=== PATIENT | female | born 1995 | race Two or more races ===

== ENCOUNTER 2025-06-14 21:32 | Inpatient (IN) | payer MEDICAID ==
[~2025-06-14] VITALS: Ht 165.1 cm; Wt 108.6 kg
[2025-06-14] MEDS: MAGNESIUM SULFATE 100 ML IV ONE ×2 (22:00→22:35)
[2025-06-14] MEDS: MAGNESIUM SULFATE 40MG/ML 1,000 ML IV ONE (22:00)
[2025-06-14] MEDS: MAGNESIUM SULFATE 40MG/ML 1,000 ML IV SCH (22:38)
--- NOTE | 2025-06-14 22:39 | DVHHP2 ---
OB CC & HPI Date Date of Admission: Jun 14, 2025 Patient Identification: : 4 Para: 3 EGA: 35.2 Chief Complaints: Reason for admission: section Indication for : other (Severe HTN) History of Present Complaints 29y with IUP at 35.2 wk by stated EDC Presented by Ambulance due to acute RUQ pain assoc with N/V x 3 hours Patient denies headache, visual changes or edema SBP > 200 on arrival, denies hx of CHTN. Denies CP, SOB , seizures or palpitations care at [facility] (Records not available) PSHX of C/S x 3, Cholecystectomy PMHX Gastritis Meds: PNL vitamins, Omeprazole NKDA Social hx: . Denies EtOH, Drug abuse or Tobacco use Past Medical History Cardiac: No pertinent Hx Pulmonary: No pertinent Hx Central Nervous System: No pertinent Hx GI: No pertinent Hx Hemotology/Oncology: No pertinent Hx Hepatobiliary: No pertinent Hx Psychiatric: No pertinent Hx Musculoskeletal: No pertinent Hx Rheumotologic: No pertinent Hx Infectious Disease: No peritnent Hx ENT: No pertinent Hx Renal/: No pertinent Hx Endocrine: No pertinent Hx Dermatology: No pertinent Hx Past Surgical History: Cholecystectomy, (x3) OB History OB History Care: [facility] Care Ultrasounds: Normal mid trimester US (per patient) Obstetrical Complications: None Medical Complications: Other (HTN) Current Medications Current Medications Medications (Trade) Dose Ordered Sig/Eloisa Route PRN Reason Start Time Stop Time Status Last Admin Magnesium Sulfate 1,000 ml @ 50 mls/hr Q20H IV 06/14/25 22:00 Review of Systems Constitutional: No symptom reported Ears, Nose, & Throat: No symptom reported Eyes: No symptom reported Pulmonary/Respiratory: No symptom reported Cardiovascular: No symptom reported Gastrointestinal: Nausea, Vomiting, Abdominal Pain Genitourinary: No symptom reported Musculoskeletal: No symptom reported Skin: No symptom reported Psychiatric: No symptom reported Endocrine: No symptom reported Hemotologic/Lymphatic: No symptom reported OB Admission Exam Physical Exam HEENT: Comment: (Moderate distress) Heart: Rhythm Normal Lungs: Clear Abdomen: Non tender (, Gravid) Extremities: Normal Reflexes: Normal Pelvic Exam: Deferred Heart Rate: 130's Accelerations: Accelerations Present Decelerations: No Decelerations Short Term Variability: Present Transportation Project Manager Variability: Average (6-25) Contractions on Admission: >10 Minutes Apart OB Plan Plan Admitting Diagnosis: IUP 35.2 wk, severe HTN Previous C/S x 3 Plan: Section Other Plan: Admit for medically indicated delivery Uncontrolled HTN, Magnesium sulfate and IV labetalol given per protocol PIH labs, UDS pending Obtained consent for C/S delivery, possible blood transfusion R/B/A discussed w/ patient and informed consent obtained. Visit Coding OBGYN Date of Service: Jun 14, 2025 Billing Provider: ROM COPPOLA DO MICROFABRICATION ENGINEER MANAGER Common Visit Codes: [id number] OBS CARE (HIGH) ROM COPPOLA DO Jun 14, 2025 22:39
[2025-06-14] MEDS: ceFAZolin 2 GM/D5W50ml 50 ML IV ONE (22:58)
[2025-06-14] MEDS ORDERED: ONDANSETRON HCL 4 MG/2 ML VIAL ONE ×2 (23:04→23:22)
[2025-06-14] MEDS ORDERED: MORPHINE SULF PF 5 MG/10 ML VIAL ONE (23:04)
[2025-06-14] MEDS ORDERED: fentaNYL CITRATE 100 MCG/2 ML VL ONE (23:04)
[2025-06-14] MEDS ORDERED: OXYTOCIN 10UNIT/ML 1ML VIAL ONE (23:04)
[2025-06-14] MEDS ORDERED: PHENYLEPHRINE HCL 10 MG/ML VL ONE (23:04)
[2025-06-14 23:05] LABS: Hematocrit 39.5 % (36.0-46.0); Hemoglobin 13.4 g/dL (12.2-16.2)
[2025-06-14 23:07] LABS: Mean Corpuscular Hemoglobin 26.7 pg (28.0-32.0); Mean Corpuscular Volume 79.0 fL (80.0-100.0); Nucleated Red Blood Cells % 0.1 %
[2025-06-14] MEDS ORDERED: BUPIVACAINE/DEXTROSE MPF 0.75% 2 ML AMP IT ONE (23:22)
[2025-06-14 23:24] LABS: Anion Gap 13 (5-15); BUN/Creatinine Ratio 16.5 (10.0-20.0); Bilirubin, Total 0.8 mg/dL (0.2-1.0); Blood Urea Nitrogen 14 mg/dL (9-23); Glucose 93 mg/dL (74-106); Potassium 4.0 mmol/L (3.5-5.1); Sodium 137 mmol/L (136-145); Uric Acid 7.4 mg/dL (3.1-7.8)
[2025-06-14 23:25] LABS: INR 0.89 (0.9-1.15); Partial Thromboplastin Time 27.4 SEC (24.5-34.5); Prothrombin Time 9.5 sec (9.3-11.8)
[2025-06-14 23:26] LABS: Alanine Aminotransferase 146 U/L (7-40); Albumin 3.0 g/dL (3.2-4.8); Alkaline Phosphatase 195 U/L (46-116); Calcium 8.4 mg/dL (8.7-10.4); Carbon Dioxide 17 mmol/L (20-31); Chloride 107 mmol/L (98-107); Total Protein 5.5 g/dL (5.7-8.2)
[2025-06-14 23:53] LABS: Protein, Urine > 2500.0 mg/dL (1-14)
[2025-06-15] VITALS (55 sets, daily range): BP systolic 120–166; BP diastolic 67–107; PULSE 69–91; RESP 11–27; TEMP 97.8–99.6; O2SAT 1–100
[2025-06-15] MEDS ORDERED: OXYTOCIN 10UNIT/ML 1ML VIAL ONE (00:07)
[2025-06-15 00:36] LABS: Amphetamine Screen, Urine Neg (NEGATIVE); Barbiturate Scree,Urine Neg (NEGATIVE); Benzodiazephine Screen, Urine Neg (NEGATIVE); Cannabinoid Screen, Urine Neg (NEGATIVE); Cocaine Screen, Urine Neg (NEGATIVE); Opiate Scree,Urine Neg (NEGATIVE); Phencyclidine Screen, Urine Neg (NEGATIVE)
[2025-06-15] MEDS ORDERED: NALOXONE HCL 0.4 MG/ML VIAL IV PRN (00:45)
[2025-06-15] MEDS ORDERED: HYDROmorphone HCL 2 MG/ML VL/or syr IV PRN (00:45)
--- NOTE | 2025-06-15 00:57 | DVHOP ---
DATE OF SURGERY: 06/15/2025 PREOPERATIVE DIAGNOSES: * Intrauterine , 35 weeks 2 days with severe preeclampsia. * Previous section x 3. FINAL DIAGNOSES: * Intrauterine , 35 weeks 2 days with severe preeclampsia. * Previous section x 3. PROCEDURE PERFORMED: Emergent repeat low transverse section via Pfannenstiel skin incision. SURGEON: Camacho King DO GANG WORKER: data technical lead. TYPE OF ANESTHESIA: Spinal. ANESTHESIOLOGIST: Mr. Antwan CRNA DESCRIPTION OF FINDINGS: Delivery of a liveborn male cephalic presentation. Clear amniotic fluid. scores are 8 and 9. Weight 2320 grams, 5 pounds 2 ounces. Normal bilateral fallopian tubes and ovaries. Thin lower uterine segment. Two-layer uterine closure. Adhesions of the omentum to the anterior abdominal wall and the bladder to the anterior abdominal wall. Normal-appearing placenta. TECHNICAL PROCEDURE: After informed consent was obtained, the patient was taken to the operating room where her spinal anesthesia was found to be adequate. The patient was placed in the supine position with a slight leftward tilt. She was sterilely prepped and draped in the usual sterile fashion. A Pfannenstiel skin incision was made with the scalpel through the prior scar. The incision developed sharply to the underlying layer of fascia and peritoneum. Entrance to the peritoneal cavity was performed bluntly. Using digital technique upon entering to the peritoneal cavity, adhesions could be palpated. The adhesions were bluntly and sharply lysed. Careful attention was placed over the adhesions of the bladder to the anterior abdominal wall. The omentum adhesions were with electrocautery. The abdominal incision was manually stretched. The Johnnie O retractor was placed into the incision. The vesicouterine peritoneum was dissected sharply with Metzenbaum scissors and a bladder flap created digitally. Using a 2nd scalpel, the lower uterine segment was incised in a low transverse fashion. The amniotic fluid membranes were ruptured. The fluid was clear. The baby was then delivered atraumatically from the vertex presentation. After delivery of the infant, the nose and mouth were suctioned. The cord was clamped and cut after 60 seconds and the baby handed off to the pediatric team. Cord blood was obtained. The placenta was spontaneously delivered. The uterus was exteriorized and cleared of all clots and debris using moist laparotomy sponges. The uterine incision was repaired with #0 Stratafix PDS in continuous running fashion in 2 layers. Excellent tissue approximation and hemostasis was obtained. The uterus was returned to the abdomen. The cul-de-sac and paracolic gutters were cleared of all clots and debris. The abdomen was irrigated with sterile water. Hemostasis was confirmed. All instrumentations were removed from the patient's abdomen. The lap and instrument counts were correct at this point. I then proceeded to close the rectus fascia using #1 PDS in continuous running fashion with good tissue approximation. The subcutaneous tissue was irrigated. Bleeding points were controlled with cautery. The skin was undermined with electrocautery. The subcutaneous tissue was approximated with 2-0 Monocryl and the skin closed transversely with danette. Sylke dressing was then placed over the incision. The patient tolerated the procedure well. Sponge, lap, and needle counts were correct x 4. INTRAOPERATIVE COMPLICATIONS: None. ESTIMATED BLOOD LOSS: 600 mL. POSTOPERATIVE CONDITION: Guarded. MEDICATIONS: Ancef 2 grams. SPECIMENS: Cord blood and placenta. DO SHIVA Rod TID: [id number] RECEIPT: [id number]
[2025-06-15] MEDS: LABETALOL HCL 20 MG/4 ML VL IV ONE (02:21)
[2025-06-15] MEDS: LABETALOL HCL 200 MG TAB PO SCH (02:27)
[2025-06-15] MEDS: ACETAMINOPHEN IV 1000 MG/100ML (10MG/ML) IV ONE (03:43)
[2025-06-15] MEDS: ONDANSETRON HCL 4 MG/2 ML VIAL IV PRN (04:05)
[2025-06-15] MEDS: KETOROLAC TROMETH 30 MG/ML 1ML VIAL IV PRN (06:00)
[2025-06-15 07:39] LABS: INR 1.01 (0.9-1.15); Partial Thromboplastin Time 31.2 SEC (24.5-34.5); Prothrombin Time 10.7 sec (9.3-11.8)
[2025-06-15 07:47] LABS: Anion Gap 13 (5-15); BUN/Creatinine Ratio 22.5 (10.0-20.0); Chloride 103 mmol/L (98-107)
--- NOTE | 2025-06-15 07:47 | DVHPN2 ---
Progress Note Date Seen: Jun 15, 2025 Subjective POD#0 s/p repeat C/S at 35+2d weeks due to severe Pre-Eclampsia, partial HELLP syndrome S: Pain moderate, lochia mild. RUQ pain improving; Had hematemesis this morning. Denies headache or visual changes vital signs Vital Sign Date Time Temp Pulse Resp B/P (MAP) Pulse Ox O2 Delivery O2 Flow Rate FiO2 06/15/25 02:27 80 157/98 06/15/25 01:05 24 98 06/15/25 00:38 Room Air 0 06/15/25 00:38 98 06/15/25 00:38 100.1 100.1 medications Current Medications Medications Dose Ordered Sig/Eloisa Route Start Time Stop Time Status Last Admin Dose Admin Magnesium Sulfate 1,000 ml @ 50 mls/hr Q20H IV 06/14/25 22:00 06/14/25 22:38 50 MLS/HR Ondansetron HCl 4 mg Q4HP PRN IV 06/15/25 00:45 06/15/25 04:05 4 MG Ketorolac Tromethamine 30 mg Q6HP PRN IV 06/15/25 00:45 06/20/25 00:44 06/15/25 06:00 30 MG Labetalol HCl 200 mg Q12HR PO 06/15/25 02:00 06/15/25 02:27 200 MG laboratory and microbiology Chemistry Test 06/14/25 22:17 06/15/25 06:24 Albumin 3.0 g/dL (3.2-4.8) L 2.7 g/dL (3.2-4.8) L Calcium Level 8.4 mg/dL (8.7-10.4) L 7.8 mg/dL (8.7-10.4) L Total Protein 5.5 g/dL (5.7-8.2) L 4.9 g/dL (5.7-8.2) L Coagulation Test 06/14/25 22:17 06/15/25 06:24 Prothrombin Time 9.5 sec (9.3-11.8) 10.7 sec (9.3-11.8) Prothrombin Time INR 0.89 (0.9-1.15) L 1.01 (0.9-1.15) Activated Partial Thromboplast Time 27.4 SEC (24.5-34.5) 31.2 SEC (24.5-34.5) Fibrin Degradation Products Pending D-Dimer, Quantitative 4.48 mg/L FEU (0.0-0.49) H LFT Test 06/14/25 22:17 06/15/25 06:24 Alanine Aminotransferase (ALT) 146 U/L (7-40) H 440 U/L (7-40) H Alkaline Phosphatase 195 U/L (46-116) H 180 U/L (46-116) H Aspartate Amino Transferase (AST) 222 U/L (13-40) H 1176 U/L (13-40) H Total Bilirubin 0.8 mg/dL (0.2-1.0) 2.8 mg/dL (0.2-1.0) H Chemistry Test 06/14/25 22:17 06/15/25 06:24 Albumin 3.0 g/dL (3.2-4.8) L 2.7 g/dL (3.2-4.8) L Calcium Level 8.4 mg/dL (8.7-10.4) L 7.8 mg/dL (8.7-10.4) L Total Protein 5.5 g/dL (5.7-8.2) L 4.9 g/dL (5.7-8.2) L Coagulation Test 06/14/25 22:17 06/15/25 06:24 Prothrombin Time 9.5 sec (9.3-11.8) 10.7 sec (9.3-11.8) Prothrombin Time INR 0.89 (0.9-1.15) L 1.01 (0.9-1.15) Activated Partial Thromboplast Time 27.4 SEC (24.5-34.5) 31.2 SEC (24.5-34.5) Fibrin Degradation Products Pending D-Dimer, Quantitative 4.48 mg/L FEU (0.0-0.49) H LFT Test 06/14/25 22:17 06/15/25 06:24 Alanine Aminotransferase (ALT) 146 U/L (7-40) H 440 U/L (7-40) H Alkaline Phosphatase 195 U/L (46-116) H 180 U/L (46-116) H Aspartate Amino Transferase (AST) 222 U/L (13-40) H 1176 U/L (13-40) H Total Bilirubin 0.8 mg/dL (0.2-1.0) 2.8 mg/dL (0.2-1.0) H Test 06/15/25 06:24 Range/Units Serum Glucose Pending Objective O: AFVSS Chest: heart and lung sounds normal. Abd soft, non-tender, fundus firm, BS, no rebound or guarding, Incision - dressing and incision clean, intact. Had oozing now resolved Ext Neg Homans, Non-tender, edema Lochia - minimal Labs pending for this a.m. Assessment/Plan POD#0 s/p repeat C/S Pre Eclampsia w/ Severe features (HELLP syndrome) Possible coagulopathy Plan: - Continue BP control w/ Labetalol as needed - Magnesium Sulfate drip x 24hr - Repeat labs, trend LFT's and platelets; DIC panel pending - Pain control - Seizure prophylaxis Hospitalist consult STAT, may need to be transferred to Tele/ICU care , at risk for bleeding/ seizure Plan discussed with: Patient Visit Coding OBGYN Date of Service: Jun 15, 2025 Billing Provider: ROM COPPOLA DO AUTHOR Common Visit Codes: [id number] INP/OBS CARE(HIGH) ROM COPPOLA DO Jun 15, 2025 07:47
[2025-06-15 08:02] LABS: Carbon Dioxide 17 mmol/L (20-31); Glucose 173 mg/dL (74-106); Potassium 5.4 mmol/L (3.5-5.1); Sodium 133 mmol/L (136-145)
[2025-06-15 08:03] LABS: Alanine Aminotransferase 440 U/L (7-40); Albumin 2.7 g/dL (3.2-4.8); Alkaline Phosphatase 180 U/L (46-116); Bilirubin, Total 2.8 mg/dL (0.2-1.0); Blood Urea Nitrogen 25 mg/dL (9-23); Calcium 7.8 mg/dL (8.7-10.4); Total Protein 4.9 g/dL (5.7-8.2)
[2025-06-15 09:19] LABS: Hematocrit 34.8 % (36.0-46.0); Hemoglobin 11.7 g/dL (12.2-16.2); Mean Corpuscular Hemoglobin 26.4 pg (28.0-32.0); Mean Corpuscular Volume 78.3 fL (80.0-100.0); Nucleated Red Blood Cells % 0.1 %
[2025-06-15 09:34] LABS: Protein, Urine 1654.3 mg/dL (1-14)
--- NOTE | 2025-06-15 09:57 | DVHINCON2 ---
Date Seen: Jun 15, 2025 Reason for Consultation Thrombocytopenia History of Present Illness 29 year old female s/p Had hematemesis? vs hemoptysis? x3 Oozing from wound Low urine output High BP Past Medical History Pre-eclampsia Gestational DM Past Surgical History C-Sections Allergies: Coded Allergies: NO KNOWN ALLERGIES (Unverified , 06/15/25) Home Meds Active Scripts Docusate Sodium (Colace) 100 Mg Cap, 1 CAP PO BID PRN, #30 CAP Prov:ROM COPPOLA DO 06/16/25 Ferric Maltol (Accrufer) 30 Mg Cap, 30 MG PO BID, #60 CAP 1 Refill Prov:ROM COPPOLA DO 06/16/25 Hydrocodone-Acetaminophen (Hydrocodone Bitartrate/AC 5-325 mg) 1 Tab Tab, 1 TAB PO Q6HPRN PRN, #20 TAB Prov:ROM COPPOLA DO 06/16/25 Labetalol HCl (Labetalol HCl) 200 Mg Tab, 200 MG PO Q12HR, #30 TAB Prov:ROM COPPOLA DO 06/16/25 Current Medications Current Medications Medications (Trade) Dose Ordered Sig/Eloisa Route PRN Reason Start Time Stop Time Status Last Admin Magnesium Sulfate 1,000 ml @ 50 mls/hr Q20H IV 06/14/25 22:00 06/14/25 22:38 Ondansetron HCl (Zofran) 4 mg Q4HP PRN IV NAUSEA / VOMITING 06/15/25 00:45 06/15/25 04:05 Naloxone HCl (Narcan) 0.2 mg Q5M PRN IV For respirations < than 10/min 06/15/25 00:45 06/15/25 02:10 DC Hydromorphone HCl (Dilaudid Injection) 0.5 mg Q15M PRN IV SEVERE PAIN (7-10 PAIN SCALE) 06/15/25 00:45 06/15/25 02:10 DC Ketorolac Tromethamine (Toradol Injection) 30 mg Q6HP PRN IV MODERATE PAIN (4-6 PAIN SCALE) 06/15/25 00:45 06/15/25 09:17 DC 06/15/25 06:00 Labetalol HCl (Normodyne Tablet) 200 mg Q12HR PO 06/15/25 02:00 06/15/25 08:25 Pantoprazole Sodium (Protonix) 40 mg BID IV 06/15/25 10:00 Vital Signs Vital Signs Date Time Temp Pulse Resp B/P (MAP) Pulse Ox O2 Delivery O2 Flow Rate FiO2 06/15/25 08:42 Room Air 06/15/25 08:25 83 147/78 06/15/25 08:13 20 95 06/15/25 06:30 98.5 98.5 06/15/25 00:38 0 06/15/25 00:38 98 Physical Exam Alert, oriented, stress Chest clear to auscultation bilaterally Abdomen soft nontender new line extremities no edema new line heart regular rate and rhythm Labs/Diagnostic Data Labs Test 06/15/25 08:56 06/15/25 07:00 06/15/25 06:24 06/14/25 23:06 Range/Units White Blood Count 15.6 H 4.4-10.8 10^3/uL Red Blood Count 4.45 4.0-5.20 10^6/uL Hemoglobin 11.7 L 12.2-16.2 g/dL Hematocrit 34.8 #L 36.0-46.0 % Mean Corpuscular Volume 78.3 L 80.0-100.0 fL Mean Corpuscular Hemoglobin 26.4 L 28.0-32.0 pg Mean Corpuscular Hemoglobin Concent 33.7 32.0-36.0 g/dL Red Cell Distribution Width 15.1 H 11.8-14.3 % Platelet Count 52 L 140-450 10^3/uL Mean Platelet Volume 7.7 6.9-10.8 fL Neutrophils (%) (Auto) 87.8 H 37.0-80.0 % Lymphocytes (%) (Auto) 7.4 L 10.0-50.0 % Monocytes (%) (Auto) 4.6 0.0-12.0 % Eosinophils (%) (Auto) 0.0 0.0-7.0 % Basophils (%) (Auto) 0.2 0.0-2.0 % Neutrophils # (Auto) 13.7 H 1.6-8.6 10 ^3/uL Lymphocytes # (Auto) 1.1 0.4-5.4 10 ^3/uL Monocytes # (Auto) 0.7 0-1.3 10 ^3/uL Eosinophils # (Auto) 0 0-0.8 10 ^3/uL Basophils # (Auto) 0 0-0.2 10 ^3/uL Nucleated Red Blood Cells 0.1 % Lactate Dehydrogenase 2490 H 120-246 U/L Urine Creatinine 95.30 30.0-125.0 mg/dL Urine Protein/Creatinine Ratio 17.36 Urine Total Protein 1654.3 H 1-14 mg/dL Prothrombin Time 10.7 9.3-11.8 sec Prothrombin Time INR 1.01 0.9-1.15 Activated Partial Thromboplast Time 31.2 24.5-34.5 SEC Sodium Level 133 L 136-145 mmol/L Potassium Level 5.4 H 3.5-5.1 mmol/L Chloride Level 103 98-107 mmol/L Carbon Dioxide Level 17 L 20-31 mmol/L Anion Gap 13 5-15 Blood Urea Nitrogen 25 #H 9-23 mg/dL Creatinine 1.11 #H 0.550-1.02 mg/dL Glomerular Filtration Rate Calc 69 >90 mL/min BUN/Creatinine Ratio 22.5 H 10.0-20.0 Serum Glucose 173 H 74-106 mg/dL Uric Acid 8.3 H 3.1-7.8 mg/dL Calcium Level 7.8 L 8.7-10.4 mg/dL Magnesium Lvl (Mg Sulfate Therapy) 6.80 4.0-7.1 mg/dL Total Bilirubin 2.8 H 0.2-1.0 mg/dL Aspartate Amino Transferase (AST) 1176 H 13-40 U/L Alanine Aminotransferase (ALT) 440 H 7-40 U/L Alkaline Phosphatase 180 H 46-116 U/L Total Protein 4.9 L 5.7-8.2 g/dL Albumin 2.7 L 3.2-4.8 g/dL Urine Opiates Screen Neg NEGATIVE Urine Fentanyl Screen Neg NEGATIVE Urine Barbiturates Screen Neg NEGATIVE Urine Phencyclidine Screen Neg NEGATIVE Urine Amphetamines Screen Neg NEGATIVE Urine Benzodiazepines Screen Neg NEGATIVE Urine Cocaine Screen Neg NEGATIVE Urine Cannabinoids Screen Neg NEGATIVE Test 06/14/25 22:17 06/14/25 07:00 Range/Units D-Dimer, Quantitative 4.48 H 0.0-0.49 mg/L FEU Assessment Preeclampsia Thrombocytopenia Most likely HELLP Transaminitis due to the above Hyper kalemia Hyponatremia Acute kidney injury Hypertension PLAN: IV fluids Transfuse 1 unit platelets Labetalol IV p.r.n. for blood pressure control IV Protonix CT scan of the abdomen pelvis no contrast Upgrade to BEN Discussed with patient and at the bedside Not stable for transfer Plan discussed with: Patient, Spouse Date of Service: Jun 15, 2025 Billing Provider: DIDI SUN MD Common Visit Codes: [id number] INP/OBS CARE(HIGH) DIDI SUN MD Jun 15, 2025 09:57
[2025-06-15] MEDS ORDERED: LABETALOL HCL 20 MG/4 ML VL IV PRN (10:00)
[2025-06-15] MEDS: SODIUM CHLORIDE 0.9% 500 ML IV ONE (10:48)
[2025-06-15] MEDS: SODIUM CHLORIDE 0.9% 1,000 ML IV ONE (10:49)
--- NOTE | 2025-06-15 10:58 | DVH ---
CLINICAL HISTORY: post op bleeding TECHNIQUE: CT of the abdomen and pelvis was performed without IV contrast. This exam was performed ac cording to our departmental dose optimization program. Up-to-date CT equipment and radiation dose red uction techniques are utilized as appropriate. CTDI 24 DLP 1232 COMPARISON: None FINDINGS: Abdomen/Pelvis: The spleen, pancreas, adrenal glands, kidneys, and liver are grossly unremarkable. The gallbladder is absent. The bladder decompressed via [place]. The uterus appears enlarged and edematous, compatible with recent surgery, suspect . There i s a small amount of air and blood products within the endometrial cavity. There are a few foci of peggy e intraperitoneal air anterior to the uterine fundus. There is trace hemoperitoneum. There is a small amount of blood products within the lower anterior left pelvic abdominal wall with m oderate amount of intramuscular and subcutaneous air. There are anterior skin danette. The abdominal aorta is normal in course and caliber. There are no significant atherosclerotic calcifi cations. There is no enlarged abdominal pelvic lymph node. There is no bowel wall thickening or dilatation. The appendix is normal. Other: The imaged lower thorax demonstrates miniscule bilateral pleural effusions with minimal adjacent atel ectasis. No acute osseous abnormality is evident. Impression: Edematous enlarged uterus with small amount of blood products within the endometrial canal and trace hemoperitoneum. Trace peritoneal free air, small amount of intramuscular hematoma, and moderate amoun t of air within the subcutaneous tissues and anterior abdominal wall musculature. Overall degree of f indings can be expected range for postoperative change. Recommend correlation with serial HandH level and follow-up exams as clinically indicated. If there is concern for active bleeding, multiphase con trast enhanced CT is suggested.
[2025-06-15 12:01] LABS: Hemoglobin 10.6 g/dL (12.2-16.2)
[2025-06-15 12:03] LABS: Hematocrit 31.5 % (36.0-46.0); Mean Corpuscular Hemoglobin 26.4 pg (28.0-32.0); Mean Corpuscular Volume 78.7 fL (80.0-100.0); Nucleated Red Blood Cells % 0.1 %
[2025-06-15 12:15] LABS: Alanine Aminotransferase 338 U/L (7-40); Albumin 2.4 g/dL (3.2-4.8); Alkaline Phosphatase 147 U/L (46-116); Anion Gap 12 (5-15); BUN/Creatinine Ratio 24.1 (10.0-20.0); Bilirubin, Total 2.2 mg/dL (0.2-1.0); Blood Urea Nitrogen 28 mg/dL (9-23); Calcium 7.1 mg/dL (8.7-10.4); Carbon Dioxide 17 mmol/L (20-31); Chloride 105 mmol/L (98-107); Glucose 121 mg/dL (74-106); Potassium 5.1 mmol/L (3.5-5.1); Sodium 134 mmol/L (136-145); Total Protein 4.4 g/dL (5.7-8.2)
[2025-06-15 12:24] LABS: Magnesium,Therapeutic 6.67 mg/dL (4.0-7.1)
[2025-06-15] MEDS: PANTOPRAZOLE 40 MG/10 ML VIAL INJ IV SCH (12:36)
[2025-06-15] MEDS: IOHEXOL 350 MG/ML 100ML IJ ONE (17:11)
[2025-06-15 18:18] LABS: Hematocrit 28.6 % (36.0-46.0); Hemoglobin 9.6 g/dL (12.2-16.2); Mean Corpuscular Hemoglobin 26.1 pg (28.0-32.0); Mean Corpuscular Volume 77.5 fL (80.0-100.0); Nucleated Red Blood Cells % 0.1 %
[2025-06-15] MEDS: MAGNESIUM SULFATE 40MG/ML 1,000 ML IV SCH (18:30)
[2025-06-15 18:31] LABS: Alanine Aminotransferase 270 U/L (7-40); Albumin 2.4 g/dL (3.2-4.8); Alkaline Phosphatase 131 U/L (46-116); Anion Gap 11 (5-15); BUN/Creatinine Ratio 28.0 (10.0-20.0); Blood Urea Nitrogen 30 mg/dL (9-23); Calcium 6.7 mg/dL (8.7-10.4); Carbon Dioxide 18 mmol/L (20-31); Chloride 105 mmol/L (98-107); Glucose 92 mg/dL (74-106); Potassium 5.0 mmol/L (3.5-5.1); Sodium 134 mmol/L (136-145); Total Protein 4.3 g/dL (5.7-8.2)
[2025-06-15 18:33] LABS: Bilirubin, Total 1.7 mg/dL (0.2-1.0)
[2025-06-15 18:40] LABS: Magnesium,Therapeutic 6.04 mg/dL (4.0-7.1)
--- NOTE | 2025-06-15 18:46 | DVH ---
INDICATION: hemoptysis TECHNIQUE: Multidetector CTA of the chest was performed of the chest with 100 cc of intravenous contr ast. PULMONARY ANGIOGRAPHY PROTOCOL was utilized using a bolus-tracking technique centered on the dylon n pulmonary artery. Axial, coronal and sagittal multiplanar and MIP reformats were performed. Radiation Dose Information: CT Dose: CTDI volume is 43 mGy. Dose-length product is 1066.19 mGy*cm Omnipaque 350: 60 mL The dose indicators for CT are the volume Computed Tomography (CT) Dose Index (CTDIvol) and the Dose Length Product (DLP), and are measured in units of mGy and mGy-cm, respectively. These indicators are not patient dose, but values generated from the CT scanner acquisition factors. The report includes radiation exposure data for exposures received during this examination. Findings: Pulmonary artery: Normal caliber of the pulmonary artery. No large central or large segmental pulmo nary embolism. Lower neck: Normal thyroid. Lungs: No focal consolidation, pulmonary mass, or suspicious pulmonary nodule. Minimal dependent atel ectasis posteriorly in both lower lung dela cruz. Heart/Vascular Structures: Normal heart size. Normal caliber and enhancement of the aorta. Lymph Nodes: No adenopathy Pleura: No pleural effusion or significant pneumothorax. Musculoskeletal: No acute osseous abnormality. Upper abdomen: Gallbladder is surgically removed. IMPRESSION: 1. No pulmonary embolism or findings of pulmonary artery hypertension. 2. No acute intrathoracic abnormality.
[2025-06-15] MEDS: MORPHINE SULFATE INJ 2 MG/ml SYRG IV PRN (18:55)
[2025-06-15 19:21] LABS: INR 0.96 (0.9-1.15); Partial Thromboplastin Time 30.8 SEC (24.5-34.5); Prothrombin Time 10.2 sec (9.3-11.8)
[2025-06-15] MEDS: RHO (D) IMMUNE GLOBULIN 300 MCG INJ IM ONE (20:45)
[2025-06-15] MEDS: SODIUM CHLORIDE 0.9% 1,000 ML IV SCH (21:07)
[2025-06-16] VITALS (60 sets, daily range): BP systolic 112–147; BP diastolic 63–86; PULSE 68–124; RESP 12–29; TEMP 97.8–98.8; O2SAT 94–100
[2025-06-16 05:04] LABS: Anion Gap 9 (5-15); BUN/Creatinine Ratio 22.1 (10.0-20.0); Blood Urea Nitrogen 21 mg/dL (9-23); Chloride 107 mmol/L (98-107); Potassium 4.4 mmol/L (3.5-5.1)
[2025-06-16 05:21] LABS: Alanine Aminotransferase 206 U/L (7-40); Albumin 2.7 g/dL (3.2-4.8); Alkaline Phosphatase 123 U/L (46-116); Bilirubin, Total 1.2 mg/dL (0.2-1.0); Calcium 6.9 mg/dL (8.7-10.4); Carbon Dioxide 20 mmol/L (20-31); Glucose 113 mg/dL (74-106); Magnesium,Therapeutic 5.34 mg/dL (4.0-7.1); Sodium 136 mmol/L (136-145); Total Protein 4.8 g/dL (5.7-8.2)
[2025-06-16 05:35] LABS: Hematocrit 26.7 % (36.0-46.0); Hemoglobin 9.1 g/dL (12.2-16.2); Mean Corpuscular Hemoglobin 26.5 pg (28.0-32.0); Mean Corpuscular Volume 77.9 fL (80.0-100.0); Nucleated Red Blood Cells % 0.1 %
[2025-06-16] MEDS ORDERED: FERR30CA PO (12:03)
[2025-06-16] MEDS ORDERED: DOCU-94 PO (12:03)
[2025-06-16] MEDS ORDERED: LABE200T10 PO (12:03)
[2025-06-16] MEDS ORDERED: HYDR-4902 PO (12:03)
--- NOTE | 2025-06-16 12:11 | DVHPN2 ---
Progress Note Date Seen: Jun 16, 2025 Subjective POD#1 s/p Repeat C/S at 35 wk due to HELLP syndrome ICU admission for very low platelets and HTN Feels better. No more RUQ pain. NO N/V . Lochia mild Denies BRADY, Visual changes vital signs Vital Sign Date Time Temp Pulse Resp B/P (MAP) Pulse Ox O2 Delivery O2 Flow Rate FiO2 06/16/25 11:20 98.7 75 14 127/78 98.7 06/16/25 08:00 99 Room Air* 0 21 Total Intake and Output 06/15/25 06/15/25 06/16/25 15:00 23:00 07:00 Intake Total 250 ml 1175 ml 1347 ml Output Total 545 ml 1600 ml 2050 ml Balance -295 ml -425 ml -703 ml medications Current Medications Medications Dose Ordered Sig/Eloisa Route Start Time Stop Time Status Last Admin Dose Admin Ondansetron HCl 4 mg Q4HP PRN IV 06/15/25 00:45 06/15/25 04:05 4 MG Labetalol HCl 200 mg Q12HR PO 06/15/25 02:00 06/16/25 09:54 200 MG Pantoprazole Sodium 40 mg BID IV 06/15/25 10:00 06/15/25 22:39 40 MG Labetalol HCl 10 mg Q2HPRN PRN IV 06/15/25 10:00 Morphine Sulfate 2 mg Q4HPRN PRN IV 06/15/25 18:15 06/15/25 18:55 2 MG Dexamethasone 6 mg DAILY PO 06/16/25 10:00 Sodium Chloride 1,000 ml @ 100 mls/hr Q10H IV 06/15/25 16:00 06/16/25 06:02 100 MLS/HR laboratory and microbiology Laboratory Tests 06/16/25 04:22 Test 06/16/25 04:22 Range/Units Serum Glucose 113 H 74-106 mg/dL Objective O: AFVSS Chest: heart and lung sounds normal. Abd soft, non-tender, fundus firm, BS, no rebound or guarding, Incision - dressing and incision clean, dry, intact Ext Neg Homans, Non-tender, edema Lochia - minimal Labs Reviewed Assessment/Plan POD#1 s/p RCS HELLP syndrome, improving s/p platelet transfusion Plan: Step down from ICU Dexamethasone 10mg IV q 12hr up to 2-4 doses or until Platelets improve Plan discussed with: Patient, Spouse Visit Coding OBGYN Date of Service: Jun 16, 2025 Billing Provider: ROM COPPOLA DO WATER TANKER DRIVER Common Visit Codes: [id number] INP/OBS CARE(HIGH) ROM COPPOLA DO Jun 16, 2025 12:11
[2025-06-16 12:12] LABS: Protein, Urine 112.9 mg/dL (1-14)
[2025-06-16 12:23] LABS: Hemoglobin 9.1 g/dL (12.2-16.2); Mean Corpuscular Hemoglobin 26.3 pg (28.0-32.0); Nucleated Red Blood Cells % 0.1 %
[2025-06-16 12:24] LABS: Hematocrit 27.2 % (36.0-46.0); Mean Corpuscular Volume 78.5 fL (80.0-100.0)
--- NOTE | 2025-06-16 12:24 | DVHPN2 ---
Subjective Better No hemoptysis Vital signs are stable Changes from previous H/P or p: Changes Objective Vitals Vital Signs Date Time Temp Pulse Resp B/P (MAP) Pulse Ox O2 Delivery O2 Flow Rate FiO2 06/16/25 11:20 98.7 75 14 127/78 98.7 06/16/25 08:00 99 Room Air* 0 21 Intake/Output Intake and Output 06/16/25 06:59 Intake Total 2772 ml Output Total 4295 ml Balance -1523 ml Intake Oral 0 ml IV Total 1550 ml Tube Feeding 0 ml Blood Product 722 ml Other 500 ml Output Urine Total 4295 ml General Appearance: Alert, Oriented X3, Cooperative, No acute distress Lungs: Clear to auscultation, Normal air movement Cardiovascular: Regular rate, Normal S1, Normal S2 Abdomen: Normal bowel sounds, Soft, No tenderness Extremities: No edema Medications Current Medications Medications Dose Ordered Sig/Eloisa Route Start Time Stop Time Status Last Admin Dose Admin Ondansetron HCl 4 mg Q4HP PRN IV 06/15/25 00:45 06/15/25 04:05 4 MG Labetalol HCl 200 mg Q12HR PO 06/15/25 02:00 06/16/25 09:54 200 MG Pantoprazole Sodium 40 mg BID IV 06/15/25 10:00 06/15/25 22:39 40 MG Labetalol HCl 10 mg Q2HPRN PRN IV 06/15/25 10:00 Morphine Sulfate 2 mg Q4HPRN PRN IV 06/15/25 18:15 06/15/25 18:55 2 MG Sodium Chloride 1,000 ml @ 100 mls/hr Q10H IV 06/15/25 16:00 06/16/25 06:02 100 MLS/HR Dexamethasone Sodium Phosphate 10 mg/Dextrose 51 ml @ 204 mls/hr BID IV 06/16/25 12:15 06/17/25 22:14 UNV Laboratory Results Chemistry Test 06/15/25 18:04 06/16/25 04:22 06/16/25 12:00 Albumin 2.4 g/dL (3.2-4.8) L 2.7 g/dL (3.2-4.8) L Pending Calcium Level 6.7 mg/dL (8.7-10.4) L 6.9 mg/dL (8.7-10.4) L Pending Total Protein 4.3 g/dL (5.7-8.2) L 4.8 g/dL (5.7-8.2) L Pending Coagulation Test 06/15/25 18:58 Prothrombin Time 10.2 sec (9.3-11.8) Prothrombin Time INR 0.96 (0.9-1.15) Activated Partial Thromboplast Time 30.8 SEC (24.5-34.5) LFT Test 06/15/25 18:04 06/16/25 04:22 06/16/25 12:00 Alanine Aminotransferase (ALT) 270 U/L (7-40) H 206 U/L (7-40) H Pending Alkaline Phosphatase 131 U/L (46-116) H 123 U/L (46-116) H Pending Aspartate Amino Transferase (AST) 459 U/L (13-40) H 200 U/L (13-40) H Pending Total Bilirubin 1.7 mg/dL (0.2-1.0) H 1.2 mg/dL (0.2-1.0) H Pending Urinalysis Test 06/14/25 07:00 06/16/25 11:25 Creatinine Clearance mL/min (75-115) Urine Creatinine 25.02 mg/dL (30.0-125.0) L Urine Protein/Creatinine Ratio 4.51 Urine Total Protein 112.9 mg/dL (1-14) H Assessment/Plan Assessment/Plan Preeclampsia Thrombocytopenia Most likely HELLP Transaminitis due to the above Hyperkalemia: Resolved Hyponatremia: Resolved Acute kidney injury: Resolved Hypertension Plan Transfuse 1 more unit platelets Steroids Replace magnesium as needed Labetalol IV p.r.n. for hypertension Downgrade to med surge Not stable for transfer Plan discussed with: Patient My Orders Orders - DIDI SUN MD Procedure Category Date Status Time Ct Angio Chest CT 06/15/25 Resulted Contrast 16:32 Morphine Sulfate PHA 06/15/25 In Process Injection 18:15 Mrsa Screen PAUL 06/15/25 In Process 18:27 Transfer Orders XFER 06/15/25 Transmitted 16:00 Urine Bacterial PAUL 06/16/25 In Process Culture 11:42 Sodium Chloride 0.9% PHA 06/15/25 In Process 16:00 Date of Service: Jun 16, 2025 Billing Provider: DIDI SUN MD Common Visit Codes: [id number] INP/OBS CARE(HIGH) DIDI SUN MD Jun 16, 2025 12:24
[2025-06-16 12:38] LABS: Anion Gap 10 (5-15); BUN/Creatinine Ratio 27.7 (10.0-20.0); Blood Urea Nitrogen 23 mg/dL (9-23); Carbon Dioxide 21 mmol/L (20-31); Glucose 87 mg/dL (74-106); Potassium 4.3 mmol/L (3.5-5.1); Sodium 138 mmol/L (136-145)
[2025-06-16 12:39] LABS: Alanine Aminotransferase 184 U/L (7-40); Albumin 2.6 g/dL (3.2-4.8); Alkaline Phosphatase 121 U/L (46-116); Bilirubin, Total 1.1 mg/dL (0.2-1.0); Calcium 6.5 mg/dL (8.7-10.4); Chloride 107 mmol/L (98-107); Total Protein 4.7 g/dL (5.7-8.2)
[2025-06-16] MEDS: HYDROcodone-ACET 10/325MG TAB PO PRN (15:55)
[2025-06-16 16:01] LABS: Hemoglobin 8.9 g/dL (12.2-16.2); Nucleated Red Blood Cells % 0.1 %
[2025-06-16 16:03] LABS: Hematocrit 26.3 % (36.0-46.0); Mean Corpuscular Hemoglobin 26.6 pg (28.0-32.0); Mean Corpuscular Volume 78.2 fL (80.0-100.0)
[2025-06-16 16:15] LABS: Alkaline Phosphatase 115 U/L (46-116); Anion Gap 9 (5-15); BUN/Creatinine Ratio 28.8 (10.0-20.0); Bilirubin, Total 1.0 mg/dL (0.2-1.0); Blood Urea Nitrogen 23 mg/dL (9-23); Carbon Dioxide 22 mmol/L (20-31); Glucose 96 mg/dL (74-106); Potassium 4.0 mmol/L (3.5-5.1); Sodium 139 mmol/L (136-145)
[2025-06-16 16:29] LABS: Alanine Aminotransferase 163 U/L (7-40); Albumin 2.6 g/dL (3.2-4.8); Calcium 6.6 mg/dL (8.7-10.4); Chloride 108 mmol/L (98-107); Total Protein 4.5 g/dL (5.7-8.2)
[2025-06-16] MEDS: SIMETHICONE 80 MG CHEWABLE TABLET PO SCH (19:07)
[2025-06-16] MEDS: IBUPROFEN 800 MG TAB PO PRN (19:08)
[2025-06-16] MEDS: DOCUSATE SOD 100 MG CAP PO SCH (22:13)
[2025-06-17] VITALS (13 sets, daily range): BP systolic 137–178; BP diastolic 73–88; PULSE 70–89; RESP 18–20; TEMP 98.2–98.5; O2SAT 96–98
[2025-06-17 03:58] LABS: Hemoglobin 8.4 g/dL (12.2-16.2); Nucleated Red Blood Cells % 0.1 %
[2025-06-17 04:00] LABS: Hematocrit 24.7 % (36.0-46.0); Mean Corpuscular Hemoglobin 26.8 pg (28.0-32.0); Mean Corpuscular Volume 78.5 fL (80.0-100.0)
[2025-06-17 04:11] LABS: INR 0.91 (0.9-1.15); Partial Thromboplastin Time 25.6 SEC (24.5-34.5); Prothrombin Time 9.7 sec (9.3-11.8)
[2025-06-17 04:14] LABS: Alkaline Phosphatase 107 U/L (46-116); Anion Gap 10 (5-15); BUN/Creatinine Ratio 19.8 (10.0-20.0); Blood Urea Nitrogen 19 mg/dL (9-23); Carbon Dioxide 21 mmol/L (20-31); Chloride 106 mmol/L (98-107); Potassium 4.1 mmol/L (3.5-5.1); Sodium 137 mmol/L (136-145); Uric Acid 8.9 mg/dL (3.1-7.8)
[2025-06-17 04:15] LABS: Bilirubin, Total 0.8 mg/dL (0.2-1.0)
[2025-06-17 04:27] LABS: Alanine Aminotransferase 121 U/L (7-40); Albumin 2.6 g/dL (3.2-4.8); Calcium 7.1 mg/dL (8.7-10.4); Glucose 159 mg/dL (74-106); Total Protein 4.8 g/dL (5.7-8.2)
[2025-06-17] MEDS: PANTOPRAZOLE 40 MG TAB PO SCH (05:31)
--- NOTE | 2025-06-17 06:42 | DVHPN2 ---
Progress Note Date Seen: Jun 17, 2025 Subjective POD#2 HELLP syndrome, repeat C/Section S: Feeling better. Moderate pain. Light lochia Denies BRADY, Visual changes, RUQ pain vital signs Vital Sign Date Time Temp Pulse Resp B/P (MAP) Pulse Ox O2 Delivery O2 Flow Rate FiO2 06/17/25 03:00 98.2 82 18 143/80 (101) 98 98.2 06/16/25 19:00 Room Air 06/16/25 08:00 0 21 Total Intake and Output 06/16/25 06/16/25 06/17/25 14:59 22:59 06:59 Intake Total 890 ml 750 ml Output Total 4400 ml 900 ml Balance 890 ml -3650 ml -900 ml medications Current Medications Medications Dose Ordered Sig/Eloisa Route Start Time Stop Time Status Last Admin Dose Admin Labetalol HCl 200 mg Q12HR PO 06/15/25 02:00 06/16/25 22:12 200 MG Labetalol HCl 10 mg Q2HPRN PRN IV 06/15/25 10:00 Dexamethasone Sodium Phosphate 10 mg/Dextrose 51 ml @ 204 mls/hr BID IV 06/16/25 12:15 06/17/25 22:14 06/17/25 03:36 204 MLS/HR Acetaminophen/ Hydrocodone Bitart 1 tab Q6HP PRN PO 06/16/25 15:15 06/17/25 03:37 1 TAB Docusate Sodium 100 mg Q12HR PO 06/16/25 22:00 06/16/25 22:13 100 MG Dimethicone 80 mg QID PO 06/16/25 18:00 06/17/25 05:31 80 MG Ibuprofen 800 mg Q8HP PRN PO 06/16/25 17:45 06/17/25 02:18 800 MG Pantoprazole Sodium 40 mg DAILY@0600 PO 06/17/25 06:00 06/17/25 05:31 40 MG laboratory and microbiology Laboratory Tests 06/17/25 03:28 Test 06/17/25 03:28 Range/Units Serum Glucose 159 H 74-106 mg/dL Objective O: AFVSS Chest: heart and lung sounds normal. Abd soft, non-tender, fundus firm, BS, no rebound or guarding, Incision - dressing and incision clean, dry, intact Ext Neg Homans, Non-tender, edema Lochia - minimal Labs Reviewed Assessment/Plan POD#2 HELLP SYNDROME -- Platelets still 41k, continue IV Dexamethasone 10mg IV Q12 hr -- Consider repeat transfusion of plt, will defer to hospitalist storage management consultant's recommendations Precipitous drop in H/H due to acute blood loss (surgical), hemoconcentration, and acute hemolysis -- repeat labs at noon today, transfuse if Hb < 7 Advance care, supportive care Plan discussed with: Patient, Other (Care endorsed to Dr Delmi TOMAS aoc operations intelligence chief ) Visit Coding OBGYN Date of Service: Jun 17, 2025 Billing Provider: ROM COPPOLA DO PATIENT SAFETY SITTER Common Visit Codes: [id number] INP/OBS CARE (HIGH) ROM COPPOLA DO Jun 17, 2025 06:42
--- NOTE | 2025-06-17 14:16 | DVHPN2 ---
Subjective Doing well No hemoptysis No bleeding Platelets 41 Changes from previous H/P or p: Changes Objective Vitals Vital Signs Date Time Temp Pulse Resp B/P (MAP) Pulse Ox O2 Delivery O2 Flow Rate FiO2 06/17/25 12:33 98.3 74 18 142/82 (102) 97 98.3 06/17/25 07:20 Room Air 06/16/25 08:00 0 21 Intake/Output Intake and Output 06/17/25 07:00 Intake Total 1515 ml Output Total 5800 ml Balance -4285 ml Intake Oral 750 ml IV Total 500 ml Other 265 ml Output Urine Total 5800 ml # Voids 3 General Appearance: Alert, Oriented X3, Cooperative, No acute distress Lungs: Clear to auscultation, Normal air movement Cardiovascular: Regular rate, Normal S1, Normal S2 Abdomen: Normal bowel sounds, Soft, No tenderness Extremities: No edema Medications Current Medications Medications Dose Ordered Sig/Eloisa Route Start Time Stop Time Status Last Admin Dose Admin Labetalol HCl 200 mg Q12HR PO 06/15/25 02:00 06/17/25 09:31 200 MG Labetalol HCl 10 mg Q2HPRN PRN IV 06/15/25 10:00 Dexamethasone Sodium Phosphate 10 mg/Dextrose 51 ml @ 204 mls/hr BID IV 06/16/25 12:15 06/17/25 22:14 06/17/25 03:36 204 MLS/HR Acetaminophen/ Hydrocodone Bitart 1 tab Q6HP PRN PO 06/16/25 15:15 06/17/25 09:31 1 TAB Docusate Sodium 100 mg Q12HR PO 06/16/25 22:00 06/17/25 09:30 100 MG Dimethicone 80 mg QID PO 06/16/25 18:00 06/17/25 12:32 80 MG Ibuprofen 800 mg Q8HP PRN PO 06/16/25 17:45 06/17/25 12:31 800 MG Pantoprazole Sodium 40 mg DAILY@0600 PO 06/17/25 06:00 06/17/25 05:31 40 MG Laboratory Results Laboratory Tests 06/17/25 03:28 Chemistry Test 06/16/25 15:52 06/17/25 03:28 Albumin 2.6 g/dL (3.2-4.8) L 2.6 g/dL (3.2-4.8) L Calcium Level 6.6 mg/dL (8.7-10.4) L 7.1 mg/dL (8.7-10.4) L Total Protein 4.5 g/dL (5.7-8.2) L 4.8 g/dL (5.7-8.2) L Coagulation Test 06/17/25 03:28 Prothrombin Time 9.7 sec (9.3-11.8) Prothrombin Time INR 0.91 (0.9-1.15) Activated Partial Thromboplast Time 25.6 SEC (24.5-34.5) LFT Test 06/16/25 15:52 06/17/25 03:28 Alanine Aminotransferase (ALT) 163 U/L (7-40) H 121 U/L (7-40) H Alkaline Phosphatase 115 U/L (46-116) 107 U/L (46-116) Aspartate Amino Transferase (AST) 106 U/L (13-40) H 55 U/L (13-40) H Total Bilirubin 1.0 mg/dL (0.2-1.0) 0.8 mg/dL (0.2-1.0) Urinalysis Test 06/14/25 07:00 06/16/25 11:25 Creatinine Clearance mL/min (75-115) Urine Creatinine 25.02 mg/dL (30.0-125.0) L Urine Protein/Creatinine Ratio 4.51 Urine Total Protein 112.9 mg/dL (1-14) H Microbiology Microbiology Date/Time Source Procedure Growth Status 06/16/25 11:25 Urine - [place] Urine Culture - Preliminary Resulted 06/15/25 17:57 Nose MRSA Screen - Final Complete Assessment/Plan Assessment/Plan Preeclampsia Thrombocytopenia Most likely HELLP Transaminitis due to the above Hyperkalemia: Resolved Hyponatremia: Resolved Acute kidney injury: Resolved Hypertension Plan 06/16/2025: Transfuse 1 more unit platelets Steroids Replace magnesium as needed Labetalol IV p.r.n. for hypertension Downgrade to med surge Not stable for transfer 06/17/2025: Thrombocytopenia is stable, platelets 41, no need for transfusions Monitor Transaminitis is better Acute kidney injury is better Discharge planning for tomorrow if her platelet count is starting to go up Plan discussed with: Patient, Spouse My Orders Orders - DIDI SUN MD Procedure Category Date Status Time Transfer Orders XFER 06/16/25 Transmitted 14:37 Date of Service: Jun 17, 2025 Billing Provider: DIDI SUN MD Common Visit Codes: [id number] INP/OBS CARE(HIGH) DIDI SUN MD Jun 17, 2025 14:16
[2025-06-17] MEDS ORDERED: HYDROcodone-ACET 5/325MG TAB PO PRN (14:30)
[2025-06-17 15:18] LABS: Hemoglobin 8.8 g/dL (12.2-16.2); Nucleated Red Blood Cells % 0.1 %
[2025-06-17 15:20] LABS: Hematocrit 26.3 % (36.0-46.0); Mean Corpuscular Hemoglobin 26.8 pg (28.0-32.0); Mean Corpuscular Volume 79.8 fL (80.0-100.0)
[2025-06-17] MEDS: HYDROcodone-ACET 5/325MG TAB PO PRN (16:31)
[2025-06-17] MEDS ORDERED: LABETALOL HCL 200 MG TAB PO SCH (20:00)
[2025-06-17] MEDS: LABETALOL HCL 200 MG TAB PO SCH (20:11)
[2025-06-18 02:49] VITALS: BP 155/75; PULSE 73; RESP 20; TEMP 97.9; O2SAT 99
--- NOTE | 2025-06-18 05:32 | DVHPN2 ---
Chief Complaints Patient reports: No new complaints, Feels better Nursing reports: No new complaints, No abdominal pain (Controlled 11/05), No chest pain, No dizziness, No cough (Blood pressure is labile labetalol increased to 300 b.i.d.) Objective Vitals Vital Signs Date Time Temp Pulse Resp B/P (MAP) Pulse Ox O2 Delivery O2 Flow Rate FiO2 06/18/25 02:49 97.9 73 20 155/75 (101) 99 97.9 06/17/25 20:00 Room Air* 0 21 Medications Current Medications Medications (Trade) Dose Ordered Sig/Eloisa Route PRN Reason Start Time Stop Time Status Last Admin Acetaminophen/ Hydrocodone Bitart ([place] 5/325MG Tab) 1 tab Q4HPRN PRN PO FOR PAIN 1-6 06/17/25 14:30 Acetaminophen/ Hydrocodone Bitart ([place] 5/325MG Tab) 2 tab Q4HPRN PRN PO FOR PAIN 7-10 06/17/25 14:30 06/18/25 04:55 Labetalol HCl (Normodyne Tablet) 300 mg Q12HR PO 06/17/25 22:00 06/17/25 20:11 Pantoprazole Sodium (Protonix Tablet) 40 mg DAILY@0600 PO 06/17/25 06:00 06/17/25 05:31 General: Normal Neck: Normal Lungs: Normal Cardiovascular: Normal Abdominal: Normal (soft uterus 12 week size firm) Musculoskeletal: Normal Extremities: Normal Studies Laboratory Tests 06/17/25 14:30 06/17/25 03:28 Test 06/17/25 03:28 Range/Units Serum Glucose 159 H 74-106 mg/dL Ass/Plan Assessment Postop day 4 section HELLP syndrome stable improved continued labile mild hypertension Plan See discharge summary early follow up with Dr. King and/or Horacio and/or NILAM Cody DO Jun 18, 2025 05:32
--- NOTE | 2025-06-18 05:36 | DVHDS2 ---
Discharge Summary Date of Admission Jun 15, 2025 at 00:00 Date of Discharge: Jun 18, 2025 Admitting Diagnosis Thirty-five week HELLP syndrome status post section GDM A1 Wounds: Clean dry intact Pfannenstiel Labs/Diagnostic Data: Laboratory Results Test 06/17/25 14:30 06/17/25 03:28 06/16/25 11:25 06/16/25 04:22 White Blood Count 15.4 10^3/uL (4.4-10.8) Red Blood Count 3.30 10^6/uL (4.0-5.20) Hemoglobin 8.8 g/dL (12.2-16.2) Hematocrit 26.3 % (36.0-46.0) Mean Corpuscular Volume 79.8 fL (80.0-100.0) Mean Corpuscular Hemoglobin 26.8 pg (28.0-32.0) Mean Corpuscular Hemoglobin Concent 33.6 g/dL (32.0-36.0) Red Cell Distribution Width 15.7 % (11.8-14.3) Platelet Count 54 10^3/uL (140-450) Mean Platelet Volume 10.5 fL (6.9-10.8) Neutrophils (%) (Auto) 79.6 % (37.0-80.0) Lymphocytes (%) (Auto) 14.5 % (10.0-50.0) Monocytes (%) (Auto) 5.5 % (0.0-12.0) Eosinophils (%) (Auto) 0.2 % (0.0-7.0) Basophils (%) (Auto) 0.2 % (0.0-2.0) Neutrophils # (Auto) 12.3 10 ^3/uL (1.6-8.6) Lymphocytes # (Auto) 2.2 10 ^3/uL (0.4-5.4) Monocytes # (Auto) 0.8 10 ^3/uL (0-1.3) Eosinophils # (Auto) 0 10 ^3/uL (0-0.8) Basophils # (Auto) 0 10 ^3/uL (0-0.2) Nucleated Red Blood Cells 0.1 % Prothrombin Time 9.7 sec (9.3-11.8) Prothrombin Time INR 0.91 (0.9-1.15) Activated Partial Thromboplast Time 25.6 SEC (24.5-34.5) Sodium Level 137 mmol/L (136-145) Potassium Level 4.1 mmol/L (3.5-5.1) Chloride Level 106 mmol/L (98-107) Carbon Dioxide Level 21 mmol/L (20-31) Anion Gap 10 (5-15) Blood Urea Nitrogen 19 mg/dL (9-23) Creatinine 0.96 mg/dL (0.550-1.02) Glomerular Filtration Rate Calc 83 mL/min (>90) BUN/Creatinine Ratio 19.8 (10.0-20.0) Serum Glucose 159 mg/dL (74-106) Uric Acid 8.9 mg/dL (3.1-7.8) Calcium Level 7.1 mg/dL (8.7-10.4) Total Bilirubin 0.8 mg/dL (0.2-1.0) Aspartate Amino Transferase (AST) 55 U/L (13-40) Alanine Aminotransferase (ALT) 121 U/L (7-40) Alkaline Phosphatase 107 U/L (46-116) Total Protein 4.8 g/dL (5.7-8.2) Albumin 2.6 g/dL (3.2-4.8) Urine Creatinine 25.02 mg/dL (30.0-125.0) Urine Protein/Creatinine Ratio 4.51 Urine Total Protein 112.9 mg/dL (1-14) Magnesium Lvl (Mg Sulfate Therapy) 5.34 mg/dL (4.0-7.1) Test 06/15/25 13:21 06/15/25 11:30 06/15/25 08:56 06/15/25 08:28 Treponema pallidum Antibody Non-reactive (Negative) Hepatitis C Antibody Negative (Negative) HIV (1&2) Antibody Negative (Negative) Rubella Antibody Positive Reticulocyte Count (auto) 2.59 % (0.5-1.5) Platelet Estimate Decrea Large Platelets Few Lactate Dehydrogenase 2490 U/L (120-246) Hepatitis B Surface Antigen Negative (Negative) Test 06/14/25 23:06 06/14/25 22:17 06/14/25 07:00 Urine Opiates Screen Neg (NEGATIVE) Urine Fentanyl Screen Neg (NEGATIVE) Urine Barbiturates Screen Neg (NEGATIVE) Urine Phencyclidine Screen Neg (NEGATIVE) Urine Amphetamines Screen Neg (NEGATIVE) Urine Benzodiazepines Screen Neg (NEGATIVE) Urine Cocaine Screen Neg (NEGATIVE) Urine Cannabinoids Screen Neg (NEGATIVE) D-Dimer, Quantitative 4.48 mg/L FEU (0.0-0.49) Creatinine Clearance mL/min (75-115) Other Laboratory Tests 06/17/25 14:30 06/17/25 03:28 Brief Hx & Hospital Course: Patient found to be in HELLP syndrome on admission emergency performed subsequently sent to ICU and then transferred to labor and delivery. She has had excellent mild elevated blood pressure otherwise no headache no right upper quadrant pain or visual changes ambulating tolerating her diet voiding and passing flatus Consults/Reason for consult Critical care hospitalist while in ICU Operations or Procedures Primary low transverse Condition at Discharge: Good Final Diagnosis/Problems List HELLP syndrome, 35+ weeks, status with section history GDM A1 Discharge Disposition: Home Discharge Instruct/Medications Diet: Regular Activity: Light activity (Pelvic rest 6 weeks PH precautions) Follow Up/Referral: 1 week Bryce Leonard or Austyn primary Sugar Mixer Medications: Labetolol 300mg BID Scheduled Ferric Maltol (Accrufer), 30 MG PO BID Labetalol HCl (Labetalol HCl), 200 MG PO Q12HR Scheduled PRN Docusate Sodium (Colace), 1 CAP PO BID PRN Hydrocodone-Acetaminophen (Hydrocodone Bitartrate/AC 5-325 mg), 1 TAB PO Q6HPRN PRN Discharge Statement: "Patient was advised to return to the ER or call 911 if any headaches, dizziness, shortness of breath, chest pain, abdominal pain, bleeding, fevers, or worsening of medical condition. Patient was counseled about treatment plan, medications, possible side effects, patientverbalized understanding. All questions were answered to the best of my ability. This discharge took greater then 30 minutes in planning, reviewing documentation, counseling the patient, and discussing with other team members." ASSESSMENT ASSESSMENT Assessment Visit Coding OBGYN Date of Service: Jun 18, 2025 Billing Provider: NILAM TORRES DO FOOD AND BEVERAGE CONTROLLER Common Visit Codes: [id number] SAME DATE (HIGH) FOOD AND BEVERAGE CONTROLLER Procedure Codes: [id number] W/ CARE NILAM TORRES DO Jun 18, 2025 05:36
[2025-06-18 07:00] VITALS: BP 177/93; PULSE 67; RESP 18; RESP 20; TEMP 97.6; O2SAT 98
[2025-06-18] MEDS ORDERED: PREN-96 PO (07:21)
[2025-06-18] MEDS ORDERED: LABE200T10 PO (07:21)
[2025-06-18] MEDS ORDERED: HYDR-4902 PO (07:21)
[2025-06-18 07:45] LABS: Hematocrit 25.5 % (36.0-46.0); Hemoglobin 8.8 g/dL (12.2-16.2); Mean Corpuscular Hemoglobin 27.3 pg (28.0-32.0); Mean Corpuscular Volume 79.1 fL (80.0-100.0)
[2025-06-18 07:56] VITALS: RESP 18
[2025-06-18 08:00] VITALS: BP 177/93; PULSE 67; RESP 20; TEMP 97.6; O2SAT 98
[2025-06-18 08:19] LABS: Nucleated Red Blood Cells % 1.0 %; Total Cells Counted 100.0 (100)
[2025-06-18 08:20] LABS: Giant Platelets Few
[2025-06-18 08:21] LABS: Anisocytosis Slight
--- NOTE | 2025-06-18 09:36 | DVHPN2 ---
Subjective No complaints Changes from previous H/P or p: Changes Objective Vitals Vital Signs Date Time Temp Pulse Resp B/P (MAP) Pulse Ox O2 Delivery O2 Flow Rate FiO2 06/18/25 09:31 74 159/84 06/18/25 08:00 97.6 20 98 97.6 06/18/25 07:56 Room Air* 0 21 Intake/Output Intake and Output 06/18/25 07:00 Output Total 1800 ml Balance -1800 ml Output Urine Total 1800 ml # Voids 1 General Appearance: Alert, Oriented X3, Cooperative, No acute distress Lungs: Clear to auscultation, Normal air movement Cardiovascular: Regular rate, Normal S1, Normal S2 Abdomen: Normal bowel sounds, Soft, No tenderness Extremities: No edema Medications Current Medications Medications Dose Ordered Sig/Eloisa Route Start Time Stop Time Status Last Admin Dose Admin Labetalol HCl 10 mg Q2HPRN PRN IV 06/15/25 10:00 Docusate Sodium 100 mg Q12HR PO 06/16/25 22:00 06/17/25 21:33 100 MG Dimethicone 80 mg QID PO 06/16/25 18:00 06/18/25 06:33 80 MG Ibuprofen 800 mg Q8HP PRN PO 06/16/25 17:45 06/17/25 21:33 800 MG Pantoprazole Sodium 40 mg DAILY@0600 PO 06/17/25 06:00 06/18/25 06:00 40 MG Acetaminophen/ Hydrocodone Bitart 1 tab Q4HPRN PRN PO 06/17/25 14:30 Acetaminophen/ Hydrocodone Bitart 2 tab Q4HPRN PRN PO 06/17/25 14:30 06/18/25 04:55 2 TAB Labetalol HCl 300 mg Q12HR PO 06/17/25 22:00 06/18/25 08:10 300 MG Laboratory Results Laboratory Tests 06/17/25 03:28 06/18/25 07:18 Urinalysis Test 06/14/25 07:00 06/16/25 11:25 Creatinine Clearance mL/min (75-115) Urine Creatinine 25.02 mg/dL (30.0-125.0) L Urine Protein/Creatinine Ratio 4.51 Urine Total Protein 112.9 mg/dL (1-14) H Microbiology Microbiology Date/Time Source Procedure Growth Status 06/16/25 11:25 Urine - [place] Urine Culture - Final Complete 06/15/25 17:57 Nose MRSA Screen - Final Complete Assessment/Plan Assessment/Plan Preeclampsia Thrombocytopenia Most likely HELLP Transaminitis due to the above Hyperkalemia: Resolved Hyponatremia: Resolved Acute kidney injury: Resolved Hypertension Plan 06/16/2025: Transfuse 1 more unit platelets Steroids Replace magnesium as needed Labetalol IV p.r.n. for hypertension Downgrade to med surge Not stable for transfer 06/17/2025: Thrombocytopenia is stable, platelets 41, no need for transfusions Monitor Transaminitis is better Acute kidney injury is better Discharge planning for tomorrow if her platelet count is starting to go up 06/18/2025: Thrombocytopenia: Platelets are 76 today Hemoglobin 8.8 White count 15.7 Hypertension: Blood pressure 159/84 Cleared for discharge Plan discussed with: Patient Date of Service: Jun 18, 2025 Billing Provider: DIDI SUN MD Common Visit Codes: [id number] INP/OBS CARE(HIGH) DIDI SUN MD Jun 18, 2025 09:36
[2025-06-18 11:29] VITALS: BP 168/95; PULSE 74; RESP 20; TEMP 97.6; O2SAT 98
[2025-06-18] MEDS: NIFEdipine 10 MG CAP PO ONE (12:22)
--- NOTE | 2025-06-18 12:28 | DVHPN2 ---
Chief Complaints Patient reports: No new complaints, Feels better Nursing reports: No new complaints, No abdominal pain (Controlled 11/05), No chest pain, No dizziness, No cough (Blood pressure is labile labetalol increased to 300 b.i.d.) Objective Vitals Vital Signs Date Time Temp Pulse Resp B/P (MAP) Pulse Ox O2 Delivery O2 Flow Rate FiO2 06/18/25 12:22 168/92 06/18/25 11:29 97.6 74 20 98 97.6 06/18/25 07:56 Room Air* 0 21 Medications Current Medications Medications (Trade) Dose Ordered Sig/Eloisa Route PRN Reason Start Time Stop Time Status Last Admin Acetaminophen/ Hydrocodone Bitart ([place] 5/325MG Tab) 1 tab Q4HPRN PRN PO FOR PAIN 1-6 06/17/25 14:30 Acetaminophen/ Hydrocodone Bitart ([place] 5/325MG Tab) 2 tab Q4HPRN PRN PO FOR PAIN 7-10 06/17/25 14:30 06/18/25 10:41 Labetalol HCl (Normodyne Tablet) 300 mg Q12HR PO 06/17/25 22:00 06/18/25 08:10 General: Normal Neck: Normal Lungs: Normal Cardiovascular: Normal Abdominal: Normal (soft uterus 12 week size firm), Soft Musculoskeletal: Normal Extremities: Normal Studies Laboratory Tests 06/17/25 03:28 Test 06/17/25 03:28 Range/Units Serum Glucose 159 H 74-106 mg/dL Ass/Plan Assessment s/p pcs ,hellp syndrome resolved Plan add procardia xl30mg qd in addition to labetolol Visit Coding OBGYN Date of Service: Jun 18, 2025 Billing Provider: THOR FORD DO ASSISTANT FACILITY MANAGER Common Visit Codes: [id number] INP/OBS CARE(HIGH) ASSISTANT FACILITY MANAGER Procedure Codes: [id number] DELIVERY ONLY THOR FORD DO Jun 18, 2025 12:27
[2025-06-18 12:50] LABS: Hematocrit 27.3 % (36.0-46.0); Hemoglobin 9.0 g/dL (12.2-16.2); Mean Corpuscular Hemoglobin 26.4 pg (28.0-32.0); Mean Corpuscular Volume 79.8 fL (80.0-100.0); Nucleated Red Blood Cells % 0.1 %
[2025-06-18 15:29] VITALS: BP 132/70; PULSE 77; RESP 18; TEMP 98; O2SAT 98
[2025-06-18] MEDS ORDERED: NIFE1TAB31 PO (15:29)
[2025-06-18] MEDS ORDERED: LABETALOL HCL 5 MG/ML ML 20ML VIAL IV ONE (19:32)
== END 2025-06-18 19:33 | disposition home or self-care (01) | DRG 540 ==
LOC: LDRP 21:32 → UNDOADMOB 21:32 → DOU 21:32 → OBSVTOIN 21:55 → INTOOBSV 21:55 → DOU 06-15 → INTOOBSV 06-15 → OBSVTOIN 06-15 → UNDOADMOB 06-15 → LDRP 06-15 01:56 → DOU 06-15 01:56 → LDRP 06-15 11:51 → DOU 06-15 15:46 → ICU WEST 06-15 21:59 → LDRP 06-16 16:42
PROVIDERS: ADMIT Obstetrics & Gynecology; ATTEND Obstetrics & Gynecology
PROC: 10D00Z1 Extraction of Products of Conception, Low, Open Approach (ICD-10-PCS; principal; 2025-06-14 23:14)
PROC: 30233S1 Transfusion of Nonautologous Globulin into Peripheral Vein, Percutaneous Approach (ICD-10-PCS; 2025-06-15)
PROC: 30233R1 Transfusion of Nonautologous Platelets into Peripheral Vein, Percutaneous Approach (ICD-10-PCS; 2025-06-15)
DX: O34.211 Maternal care for low transverse scar from previous cesarean delivery (principal); O14.24 HELLP syndrome, complicating childbirth; K92.0 Hematemesis; O99.892 Other specified diseases and conditions complicating childbirth; Z37.0 Single live birth; Z3A.35 35 weeks gestation of pregnancy; Z90.49 Acquired absence of other specified parts of digestive tract
CPT/HCPCS: 36415; 59025; 71275; 74176; 80053; 80307; 82570; 82575; 83010; 83615; 83735; 84156; 84550; 85007; 85025; 85027; 85045; 85362; 85379; 85610; 85730; 86703; 86762; 86780; 86803; 86850; 86900; 86901; 86920; 87081; 87086; 87340; 90384; 94760; 94762; 96360; 96361; 96365; 96366; 96372; 96374; 96375; G0378; J0131; J1100; J1885; J2405; J2470; J7060